=== PATIENT | female | born 1990 | race Hispanic/Latino ===

== ENCOUNTER 2018-03-31 14:40 | Emergency (ER) | payer BC ==
[~2018-03-31] VITALS: Ht 154.9 cm; Wt 73.0 kg
[2018-03-31 15:36] LABS: BASOPHILS % 0.3 % (0.0-1.0); EOSINOPHILS # (AUTO) 0.1 (0.0-0.4); EOSINOPHILS % 0.5 % (0.0-6.0); HEMATOCRIT 34.5 % (34.2-44.1); HEMOGLOBIN 10.6 g/dL (12.0-16.0); LYMPHOCYTES # (AUTO) 2.4 (1.0-3.2); LYMPHOCYTES % 19.8 % (18.0-39.1); MEAN CORPUSCULAR HGB CONC 30.7 g/dL (31-35); MONOCYTES # (AUTO) 0.8 (0.2-0.8); MONOCYTES % 6.3 % (4.4-11.3); NEUTROPHILS # (AUTO) 8.8 (2.1-6.9); NEUTROPHILS % 72.8 % (38.7-80.0); PLATELET COUNT 435 x10e3/uL (140-360); RED CELL DISTRIBUTION WIDTH 15.6 % (11.7-14.4)
[2018-03-31 15:51] LABS: CLARITY,URINE CLOUDY (CLEAR); COLOR,URINE RED (YELLOW)
[2018-03-31 15:53] LABS: LEUKOCYTE ESTERASE ,URINE 1+ (NEGATIVE); NITRITE,URINE POSITIVE (NEGATIVE)
[2018-03-31 15:53] LABS: ALANINE AMINOTRANSFERASE 42 IU/L (0-55); ALBUMIN 4.1 g/dL (3.5-5.0); ALBUMIN/GLOBULIN RATIO 1.1 (0.8-2.0); ALKALINE PHOSPHATASE 113 IU/L (40-150); ANION GAP 14.5 mmol/L (8-16); BLOOD UREA NITROGEN 6 mg/dL (7-26); BUN/CREATININE RATIO 9 (6-25); CALCIUM 9.5 mg/dL (8.4-10.2); CARBON DIOXIDE 24 mmol/L (22-29); CHLORIDE 103 mmol/L (98-107); CREATININE, SERUM 0.68 mg/dL (0.57-1.11); EST GLOMERULAR FILTRATION RATE > 60 ML/MIN (60-); GLUCOSE 94 mg/dL (74-118); POTASSIUM 3.5 mmol/L (3.5-5.1); SODIUM 138 mmol/L (136-145)
[2018-03-31 15:54] LABS: BACTERIA,URINE MODERATE /HPF; BILIRUBIN,URINE NEGATIVE (NEGATIVE); KETONES,URINE TRACE (NEGATIVE); PROTEIN,URINE DIPSTICK 2+ (NEGATIVE); RBC,URINE >50 /HPF (0-5); URINE UROBILINOGEN 1 mg/dL (0.2 - 1)
[2018-03-31 15:55] LABS: EPITHELIAL CELLS,URINE FEW /LPF
[2018-03-31 15:57] LABS: PREGNANCY TEST, URINE POSITIVE (NEGATIVE)
[2018-03-31 16:00] LABS: HCG,QUANTITATIVE 912.27 mIU/mL (0-10)
[2018-03-31] MEDS ORDERED: LABETALOL HCL 5 MG/ML 20ML VIAL IV STA (16:09)
[2018-03-31] MEDS ORDERED: LABETALOL HCL 100 MG TAB PO ONE (16:30)
[2018-03-31] MEDS ORDERED: CEFTRIAXONE SOD 1 GM VIAL IV ONE (16:45)
--- NOTE | 2018-03-31 17:56 | Diagnostic Imaging Report ---
EXAM: Obstetric Pelvic Ultrasound INDICATION: ^vag bleeding COMPARISON: None TECHNIQUE: Transabdominal and transvaginal evaluation of the pelvis was performed in the transverse and longitudinal planes. CLINICAL HISTORY: 28 year old ; last menstrual period: 02/18/2018, beta hCG 912.3 FINDINGS: Uterus: Orientation: Anteverted Size: 8.5 x 3.2 x 4.0 cm, normal Mass: None Cervix: Normal Gestational Sac: A 0.5 x 0.1 x 0.4 cm oval-shaped anechoic structure is noted in the endometrium Mean gestational sac diameter 0.3 cm, approximate gestational age 5 weeks Yolk sac: Not visualized Embryo/Fetus: None visualized Right ovary Size: 2.6 x 1.8 x 3.2 cm Mass/Cyst: None. Normal flow is identified. Left ovary Size: 2.5 x 2.6 x 2.2 cm Mass/Cyst: 1.0 x 1.0 x 0.7 cm cystic, anechoic dominant follicle Normal flow is identified. Cul-de-sac: No free fluid IMPRESSION: 1. A 0.5 cm anechoic structure in the endometrium likely represents a gestational sac. No pole or yolk sac is identified. This likely represents an intrauterine of uncertain viability. Recommend follow-up transvaginal ultrasound in one week classification: Viable: can potentially result in a liveborn baby Visualized embryo with FHT Nonviable: Findings diagnostic of failure Ectopic CRL >= 7 mm and no FHT MSD >= 25 mm and no embryo No FHT >= 2 weeks after US showed GS w/o YS No FHT >= 11 days after US showed GS w/ YS Intrauterine of uncertain viability: Intrauterine GS with no FHT and no definite findings of failure of unknown location: Positive urine or serum test and no IUP or ectopic on US ?@ Diagnostic Criteria for Nonviable Early in the First Trimester N Engl J Med 2013;369:1443-51. DOI: [id number] Signed by: Dr. Bello Wu M.D. on 03/31/2018 5:53 PM
[2018-03-31 18:17] VITALS: BP 128/68
== END 2018-03-31 18:24 | disposition home or self-care (01) ==
LOC: ER 14:40
DX: O20.9 Hemorrhage in early pregnancy, unspecified (principal); O23.41 Unspecified infection of urinary tract in pregnancy, first trimester
CPT/HCPCS: 36415; 76817; 76830; 80053; 81001; 81025; 84702; 85025; 86900; 87086; 99283; J0696; J3490